=== PATIENT | female | born 1995 | race Caucasian/White ===

== ENCOUNTER 2016-04-21 20:11 | Emergency (ER) | payer OTHER ==
--- NOTE | 2016-04-21 20:57 | ED CLINICAL REPORT ---
Clinical Report - Physicians/Mid Levels [facility] [address] [place] [address] 04/21/2016 20:17 Patient: MANSOOR PRUITT Time Seen: 2049; initial patient contact, initial documentation, patient care assumed. Arrived- By private vehicle. Historian- patient. HISTORY OF PRESENT ILLNESS Chief Complaint: EYE PAIN, REDNESS and IRRITATION. This started today, involves the right eye, is characterized as moderate in severity and has been constant and is still present. The patient did not sustain an injury. Eye discomfort, burning, redness and discharge. No blurred vision, double vision, decreased vision or loss of vision. ( used otc eye wash, no relief). REVIEW OF SYSTEMS All systems otherwise negative, except as recorded above. PAST HISTORY Negative. SOCIAL HISTORY Never smoker. No alcohol use or drug use. FAMILY HISTORY No significant family medical history. ADDITIONAL NOTES The nursing notes have been reviewed with agreement regarding the chief complaint, HPI, ROS, PMH and patient medications and allergies. PHYSICAL EXAM Vital Signs: 04/21/2016 20:23 BP: 119/74. HR: 72. RR: 16. O2 saturation: 99%. Temp: 98.2 F. Pain level now: 8/10. Appearance: Alert. Oriented X3. No acute distress. Eyes: Eyelids appear normal to inspection. Conjunctivae and sclerae do not appear normal to inspection. Corneas appear normal to inspection. Pupils equal, round and reactive to light. Accommodation normal. Funduscopic exam normal. Visual hassan normal. EOMs intact. Periorbital areas appear normal to inspection. Anterior chambers clear. Anterior chambers of normal depth. Rt Eye: Right eye exam normal. Mild conjunctival edema. Copious exudate present. Lt Eye: Left eye exam normal. Neck: Neck supple. Normal inspection. Respiratory: No respiratory distress. Skin: No rash. Extremities: Extremities negative. Neuro: Oriented X 3. Mood/affect normal. No motor deficit. No sensory deficit. PROGRESS AND PROCEDURES Patient counseled in person regarding the patient's stable condition and diagnosis. 20:57. Differential Diagnosis: Other possible considerations: conjunctivitis, fb, abrasion. Above considerations are based on history and physical exam. Differential diagnosis was discussed with patient. Disposition: Discharged home in good and unchanged condition (20:57). Condition: good and stable. CLINICAL IMPRESSION Acute mucopurulent conjunctivitis of the right eye. INSTRUCTIONS Warnings: GENERAL WARNINGS: Return or contact your physician immediately if your condition worsens or changes unexpectedly, if not improving as expected, or if other problems arise. Specifically return if problem worsens. Prescription Medications: Polytrim ophthalmic solution: Instill 1 drop into affected eye every 3 hours while awake (max 6 doses per day) for 1 week. Dispense five (5) mL. No refills. Substitution is permissible. Follow-up: Follow up with your doctor in about two days as needed. Call for an appointment. Summary of care provided to patient. Understanding of the discharge instructions verbalized by patient. (Electronically signed by Luisa Garcia A.R.N.P. 04/21/2016 22:08)
--- NOTE | 2016-04-21 20:57 | ED NURSING NOTES ---
Clinical Report - Nurses [facility] [address] [place] [address] 04/21/2016 20:17 Patient: MANSOOR PRUITT TRIAGE Triage time 20:23. Acuity: LEVEL 4. Chief Complaint: REDNESS and VISION PROBLEM TO RIGHT EYE. "PINK EYE" and DISCOMFORT TO RIGHT EYE. 20:28 04/21/16. SEPSIS SCREEN: Sepsis Screen. Negative (no infection suspected/documented). ANA COMA SCORE: Ana Coma Scale: 15- eyes open spontaneously (4); best verbal response- oriented x 4 (5); best motor response- obeys commands (6). --20:28 Carrillo Garzon R.N. 20:23 04/21/16. BP: 119/74. HR: 72. RR: 16. O2 saturation: 99% on room air. Temp: 98.2 F (oral). Pain level now: 810. --20:28 Carrillo Garzon R.N. Weight: 74.8 kg stated. Height/Length: 64 inches Per Patient. BMI: 28.3. --20:24 Carrillo Garzon R.N. Medications None. --20:24 Carrillo Garzon R.N. Allergies No Known Drug Allergy. --20:25 Carrillo Garzon R.N. History Historian: patient. This started today. 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 PAST MEDICAL HX: Denies current . SOCIAL HX: Never smoker. No alcohol use or drug use. ABUSE ASSESSMENT: No report of abuse. --20:28 Carrillo Garzon R.N. PROBLEMS: no known problems. Interventions ID band on patient. To treatment room. --20:28 Carrillo Garzon R.N. PHYSICAL ASSESSMENT 20:33 04/21/16. Ambulatory to room. GENERAL / NEURO / PSYCH: Alert. Appears in no acute distress. Appears in pain. HEENT: No facial asymmetry noted. Photophobia present. Pupils equal, round and reactive to light. Conjunctival findings present: redness of the right conjunctiva. Right ear within normal limits. Left ear within normal limits. Mouth inspection within normal limits. Pharynx within normal limits. RESPIRATORY: Respirations not labored. CVS: Capillary refill less than 2 seconds. SKIN: Skin is warm and dry. Normal skin turgor. --20:33 Carrillo Garzon R.N. NURSING PROGRESS NOTES 20:33 04/21/16. Reassurance given. Two patient identifiers checked. Call light placed in reach. Bed placed in lowest position. Brakes of bed on. Patient ready for evaluation- chart flagged. --20:34 Carrillo Garzon R.N. DISPOSITION / DISCHARGE 21:18 04/21/16. Departure time: 2114. Condition at departure: unchanged and stable. No learning barriers present. Discharge instructions provided and reviewed with the patient. Reviewed medication(s). Treatments reviewed. Patient and industrial arts public school teacher verbalized understanding. Written instructions provided in Tu[place]. The patient was discharged by the nurse practitioner. She was discharged home and accompanied by industrial arts public school teacher. She left the Emergency Department ambulatory and via private vehicle. Child Development Assistant driving. --21:19 Carrillo Garzon R.N. 21:00 04/21/16. BP: 118/72. HR: 72. RR: 16. O2 saturation: 99% on room air. Temp: 98.2 F (oral). Pain level now: 11/28. --21:19 Carrillo Garzon R.N. Locked/Released at 04/21/2016 21:19 by Carrillo Garzon R.N.
--- NOTE | 2016-04-21 20:57 | ED CLINICAL REPORT ---
Clinical Report - Physicians/Mid Levels [facility] [address] [place] [address] 04/21/2016 20:17 Patient: MANSOOR PRUITT Time Seen: 2049; initial patient contact, initial documentation, patient care assumed. Arrived- By private vehicle. Historian- patient. HISTORY OF PRESENT ILLNESS Chief Complaint: EYE PAIN, REDNESS and IRRITATION. This started today, involves the right eye, is characterized as moderate in severity and has been constant and is still present. The patient did not sustain an injury. Eye discomfort, burning, redness and discharge. No blurred vision, double vision, decreased vision or loss of vision. ( used otc eye wash, no relief). REVIEW OF SYSTEMS All systems otherwise negative, except as recorded above. PAST HISTORY Negative. SOCIAL HISTORY Never smoker. No alcohol use or drug use. FAMILY HISTORY No significant family medical history. ADDITIONAL NOTES The nursing notes have been reviewed with agreement regarding the chief complaint, HPI, ROS, PMH and patient medications and allergies. PHYSICAL EXAM Vital Signs: 04/21/2016 20:23 BP: 119/74. HR: 72. RR: 16. O2 saturation: 99%. Temp: 98.2 F. Pain level now: 8/10. Appearance: Alert. Oriented X3. No acute distress. Eyes: Eyelids appear normal to inspection. Conjunctivae and sclerae do not appear normal to inspection. Corneas appear normal to inspection. Pupils equal, round and reactive to light. Accommodation normal. Funduscopic exam normal. Visual hassan normal. EOMs intact. Periorbital areas appear normal to inspection. Anterior chambers clear. Anterior chambers of normal depth. Rt Eye: Right eye exam normal. Mild conjunctival edema. Copious exudate present. Lt Eye: Left eye exam normal. Neck: Neck supple. Normal inspection. Respiratory: No respiratory distress. Skin: No rash. Extremities: Extremities negative. Neuro: Oriented X 3. Mood/affect normal. No motor deficit. No sensory deficit. PROGRESS AND PROCEDURES Patient counseled in person regarding the patient's stable condition and diagnosis. 20:57. Differential Diagnosis: Other possible considerations: conjunctivitis, fb, abrasion. Above considerations are based on history and physical exam. Differential diagnosis was discussed with patient. Disposition: Discharged home in good and unchanged condition (20:57). Condition: good and stable. CLINICAL IMPRESSION Acute mucopurulent conjunctivitis of the right eye. INSTRUCTIONS Warnings: GENERAL WARNINGS: Return or contact your physician immediately if your condition worsens or changes unexpectedly, if not improving as expected, or if other problems arise. Specifically return if problem worsens. Prescription Medications: Polytrim ophthalmic solution: Instill 1 drop into affected eye every 3 hours while awake (max 6 doses per day) for 1 week. Dispense five (5) mL. No refills. Substitution is permissible. Follow-up: Follow up with your doctor in about two days as needed. Call for an appointment. Summary of care provided to patient. Understanding of the discharge instructions verbalized by patient. (Electronically signed by Luisa Garcia A.R.N.P. 04/21/2016 22:08)
--- NOTE | 2016-04-21 20:57 | ED NURSING NOTES ---
Clinical Report - Nurses [facility] [address] [place] [address] 04/21/2016 20:17 Patient: MANSOOR PRUITT TRIAGE Triage time 20:23. Acuity: LEVEL 4. Chief Complaint: REDNESS and VISION PROBLEM TO RIGHT EYE. "PINK EYE" and DISCOMFORT TO RIGHT EYE. 20:28 04/21/16. SEPSIS SCREEN: Sepsis Screen. Negative (no infection suspected/documented). ANA COMA SCORE: Ana Coma Scale: 15- eyes open spontaneously (4); best verbal response- oriented x 4 (5); best motor response- obeys commands (6). --20:28 Carrillo Garzon R.N. 20:23 04/21/16. BP: 119/74. HR: 72. RR: 16. O2 saturation: 99% on room air. Temp: 98.2 F (oral). Pain level now: 810. --20:28 Carrillo Garzon R.N. Weight: 74.8 kg stated. Height/Length: 64 inches Per Patient. BMI: 28.3. --20:24 Carrillo Garzon R.N. Medications None. --20:24 Carrillo Garzon R.N. Allergies No Known Drug Allergy. --20:25 Carrillo Garzon R.N. History Historian: patient. This started today. 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 PAST MEDICAL HX: Denies current . SOCIAL HX: Never smoker. No alcohol use or drug use. ABUSE ASSESSMENT: No report of abuse. --20:28 Carrillo Garzon R.N. PROBLEMS: no known problems. Interventions ID band on patient. To treatment room. --20:28 Carrillo Garzon R.N. PHYSICAL ASSESSMENT 20:33 04/21/16. Ambulatory to room. GENERAL / NEURO / PSYCH: Alert. Appears in no acute distress. Appears in pain. HEENT: No facial asymmetry noted. Photophobia present. Pupils equal, round and reactive to light. Conjunctival findings present: redness of the right conjunctiva. Right ear within normal limits. Left ear within normal limits. Mouth inspection within normal limits. Pharynx within normal limits. RESPIRATORY: Respirations not labored. CVS: Capillary refill less than 2 seconds. SKIN: Skin is warm and dry. Normal skin turgor. --20:33 Carrillo Garzon R.N. NURSING PROGRESS NOTES 20:33 04/21/16. Reassurance given. Two patient identifiers checked. Call light placed in reach. Bed placed in lowest position. Brakes of bed on. Patient ready for evaluation- chart flagged. --20:34 Carrillo Garzon R.N. DISPOSITION / DISCHARGE 21:18 04/21/16. Departure time: 2114. Condition at departure: unchanged and stable. No learning barriers present. Discharge instructions provided and reviewed with the patient. Reviewed medication(s). Treatments reviewed. Patient and drafter tool design verbalized understanding. Written instructions provided in Nigerien. The patient was discharged by the nurse practitioner. She was discharged home and accompanied by drafter tool design. She left the Emergency Department ambulatory and via private vehicle. Enamel Sprayer driving. --21:19 Carrillo Garzon R.N. 21:00 04/21/16. BP: 118/72. HR: 72. RR: 16. O2 saturation: 99% on room air. Temp: 98.2 F (oral). Pain level now: 11/28. --21:19 Carrillo Garzon R.N. Locked/Released at 04/21/2016 21:19 by Carrillo Garzon R.N.
--- NOTE | 2016-04-21 22:08 | ED DISCHARGE INSTRUCTIONS ---
Patient: MANSOOR PRUITT General Instructions [facility] VisitID: [id number] [place] [address] 20y, F Registration Date/Time: 04/21/2016 INSTRUCTIONS Warnings: GENERAL WARNINGS: Return or contact your physician immediately if your condition worsens or changes unexpectedly, if not improving as expected, or if other problems arise. Specifically return if problem worsens. Prescription Medications: Polytrim ophthalmic solution: Instill 1 drop into affected eye every 3 hours while awake (max 6 doses per day) for 1 week. Dispense five (5) mL. No refills. Substitution is permissible. Follow-up: Follow up with your doctor in about two days as needed. Call for an appointment. Summary of care provided to patient. Understanding of the discharge instructions verbalized by patient. ADDITIONAL INFORMATION Conjunctivitis, Bacterial You have a bacterial infection in the membranes covering the eye. The most common symptoms include a thick discharge from the eye, swollen eyelids, redness, eyelids sticking together upon awakening, and a gritty or scratchy feeling in the eye. The infection takes about 7-10 days to resolve with treatment. Home Care: Use prescribed eyedrops or ointment as directed to treat the infection. Apply a warm pack (towel soaked in warm water) to the affected eye 3-4 times a day. Do this just before applying medicine to the eye. Use a warm, wet cloth to wipe away crusting of the eyelids in the morning. This is caused by mucus drainage during the night. You may also use saline irrigating solution or artificial tears to rinse away mucus inside the eye. Do not put a patch over the eye. Wash your hands before and after touching the infected eye. This is to prevent spreading the infection to the other eye, and to other people. Do not share your towels or washcloths with others. You may use acetaminophen (Tylenol) or ibuprofen (Motrin, Advil) to control pain, unless another medicine was prescribed. [NOTE: If you have chronic liver or kidney disease or ever had a stomach ulcer or GI bleeding, talk with your doctor before using these medicines.] Do not wear contact lenses until your eyes have healed and all symptoms are gone. Follow Up with your doctor or this facility as directed, or if there has not been improvement within 5 days. Get Prompt Medical Attention if any of the following occur: Worsening vision Increasing pain in the eye Increasing swelling or redness of the eyelid Redness spreading around the eye Conjunctivitis, Non-Specific The membrane that covers your eye is inflamed. Any itching, burning or irritation should go away within the next 24 hours. Conjunctivitis may be related to a particle that was in your eye. If so, it was washed out with your tears or irrigation treatment. Being exposed to liquid chemicals or fumes may also cause this reaction. Your condition does not appear to be due to an eye infection. Home Care: Apply a cold pack (ice in a plastic bag, wrapped in a towel) over the eye for 20 minutes at a time. This will reduce pain. Eye drops may be prescribed to reduce irritation or redness. Otherwise, Visine or similar [id number] decongestant eye drops may be used. You may use acetaminophen (Tylenol) or ibuprofen (Motrin, Advil) to control pain, unless another medicine was prescribed. [ NOTE: If you have chronic liver or kidney disease or ever had a stomach ulcer or GI bleeding, talk with your doctor before using these medicines.] Follow Up with your doctor or this facility as directed, or if your symptoms have not improved after 24 hours. Get Prompt Medical Attention if any of the following occur: Increased eyelid swelling Increase in eye pain Increased redness or drainage from the eye Failure of normal vision to return within 24-48 hours. Trimethoprim Sulfate, Polymyxin B Sulfate Eye drops, solution What is this medicine? POLYMYXIN B and TRIMETHOPRIM (la i MIX in B and trye METH oh prim) eye drops treat certain eye infections caused by bacteria. How should I use this medicine? This medicine is used in the eye. Follow the directions on the prescription label. Wash your hands before and after use. Tilt your head back slightly. Pull your lower eyelid down gently to form a pouch. Do not touch the tip of the dropper to your eye, fingertips, or other surface. Squeeze the prescribed number of drops into the pouch. Close the eye gently to spread the drops. Use your medicine at regular intervals. Do not take your medicine more often than directed. Use all of your medicine as directed even if you think your are better. Do not skip doses or stop your medicine early. Talk to your post splitter regarding the use of this medicine in children. While this drug may be prescribed for children and infants for selected conditions, precautions do apply. What side effects may I notice from receiving this medicine? Side effects that you should report to your doctor or health care transition manager as soon as possible: burning, stinging, or swelling change in vision or blurred vision that will not go away eye pain itching and redness rash Side effects that usually do not require medical attention (report to your doctor or health care transition manager if they continue or are bothersome): temporary blurred vision after applying temporary watering or stinging What may interact with this medicine? Interactions are not expected. Do not use any other eye products without advice of your doctor or health care transition manager. What if I miss a dose? If you miss a dose, use it as soon as you can. If it is almost time for your next dose, use only that dose. Do not use double or extra doses. Where should I keep my medicine? Keep out of the reach of children. Store at room temperature 15 to 25 degrees C (59 to 77 degrees F). Protect from light. To prevent the spread of infection, it is best to throw away any unused eye drops after you finish the course of treatment. Throw away any unused medicine after the expiration date. What should I tell my health care provider before I take this medicine? They need to know if you have any of these conditions: wear contact lenses an unusual or allergic reaction to polymyxin B, trimethoprim, other medicines, foods, dyes, or preservatives or trying to get breast-feeding What should I watch for while using this medicine? Check with your doctor or health care transition manager if your condition does not get better after 5 days, or if it gets worse. If you wear contact lenses, ask when you can use your lenses again. A burning or stinging reaction that does not go away may mean you are allergic to this product. Stop use and call your doctor or health care transition manager. To prevent the spread of infection, do not share eye products or other personal items with anyone else. You have been given the following additional information: Conjunctivitis, Bacterial Conjunctivitis, Non-Specific Trimethoprim Sulfate, Polymyxin B Sulfate Eye drops, solution (Electronically signed by Luisa Garcia A.R.N.P. 04/21/2016 22:08)
--- NOTE | 2016-04-21 22:08 | ED MED RECONCILIATION SUMMARY ---
Patient: MANSOOR PRUITT Medication Reconciliation Report [facility] VisitID: [id number] [address] [place] [address] 20y, F Registration Date/Time: 04/21/2016 Weight: 74.8 kg Height/Length: 64 in. BMI: 28.3 ALLERGIES: No Known Drug Allergy The patient's Home Medications are listed below: NONE. The source(s) of the original Home Medication information: Not obtained. The following Medications were given to the patient in the Emergency Department: None. The following Medications were prescribed to the patient: Polytrim ophthalmic solution: Instill 1 drop into affected eye every 3 hours while awake (max 6 doses per day) for 1 week. Dispense five (5) mL. No refills. Substitution is permissible. -- Luisa Garcia A.R.N.P.
--- NOTE | 2016-04-21 22:08 | ED DISCHARGE INSTRUCTIONS ---
Patient: MANSOOR PRUITT General Instructions [facility] VisitID: [id number] [place] [address] 20y, F Registration Date/Time: 04/21/2016 INSTRUCTIONS Warnings: GENERAL WARNINGS: Return or contact your physician immediately if your condition worsens or changes unexpectedly, if not improving as expected, or if other problems arise. Specifically return if problem worsens. Prescription Medications: Polytrim ophthalmic solution: Instill 1 drop into affected eye every 3 hours while awake (max 6 doses per day) for 1 week. Dispense five (5) mL. No refills. Substitution is permissible. Follow-up: Follow up with your doctor in about two days as needed. Call for an appointment. Summary of care provided to patient. Understanding of the discharge instructions verbalized by patient. ADDITIONAL INFORMATION Conjunctivitis, Bacterial You have a bacterial infection in the membranes covering the eye. The most common symptoms include a thick discharge from the eye, swollen eyelids, redness, eyelids sticking together upon awakening, and a gritty or scratchy feeling in the eye. The infection takes about 7-10 days to resolve with treatment. Home Care: Use prescribed eyedrops or ointment as directed to treat the infection. Apply a warm pack (towel soaked in warm water) to the affected eye 3-4 times a day. Do this just before applying medicine to the eye. Use a warm, wet cloth to wipe away crusting of the eyelids in the morning. This is caused by mucus drainage during the night. You may also use saline irrigating solution or artificial tears to rinse away mucus inside the eye. Do not put a patch over the eye. Wash your hands before and after touching the infected eye. This is to prevent spreading the infection to the other eye, and to other people. Do not share your towels or washcloths with others. You may use acetaminophen (Tylenol) or ibuprofen (Motrin, Advil) to control pain, unless another medicine was prescribed. [NOTE: If you have chronic liver or kidney disease or ever had a stomach ulcer or GI bleeding, talk with your doctor before using these medicines.] Do not wear contact lenses until your eyes have healed and all symptoms are gone. Follow Up with your doctor or this facility as directed, or if there has not been improvement within 5 days. Get Prompt Medical Attention if any of the following occur: Worsening vision Increasing pain in the eye Increasing swelling or redness of the eyelid Redness spreading around the eye Conjunctivitis, Non-Specific The membrane that covers your eye is inflamed. Any itching, burning or irritation should go away within the next 24 hours. Conjunctivitis may be related to a particle that was in your eye. If so, it was washed out with your tears or irrigation treatment. Being exposed to liquid chemicals or fumes may also cause this reaction. Your condition does not appear to be due to an eye infection. Home Care: Apply a cold pack (ice in a plastic bag, wrapped in a towel) over the eye for 20 minutes at a time. This will reduce pain. Eye drops may be prescribed to reduce irritation or redness. Otherwise, Visine or similar [id number] decongestant eye drops may be used. You may use acetaminophen (Tylenol) or ibuprofen (Motrin, Advil) to control pain, unless another medicine was prescribed. [ NOTE: If you have chronic liver or kidney disease or ever had a stomach ulcer or GI bleeding, talk with your doctor before using these medicines.] Follow Up with your doctor or this facility as directed, or if your symptoms have not improved after 24 hours. Get Prompt Medical Attention if any of the following occur: Increased eyelid swelling Increase in eye pain Increased redness or drainage from the eye Failure of normal vision to return within 24-48 hours. Trimethoprim Sulfate, Polymyxin B Sulfate Eye drops, solution What is this medicine? POLYMYXIN B and TRIMETHOPRIM (la i MIX in B and trye METH oh prim) eye drops treat certain eye infections caused by bacteria. How should I use this medicine? This medicine is used in the eye. Follow the directions on the prescription label. Wash your hands before and after use. Tilt your head back slightly. Pull your lower eyelid down gently to form a pouch. Do not touch the tip of the dropper to your eye, fingertips, or other surface. Squeeze the prescribed number of drops into the pouch. Close the eye gently to spread the drops. Use your medicine at regular intervals. Do not take your medicine more often than directed. Use all of your medicine as directed even if you think your are better. Do not skip doses or stop your medicine early. Talk to your recoil spring winder regarding the use of this medicine in children. While this drug may be prescribed for children and infants for selected conditions, precautions do apply. What side effects may I notice from receiving this medicine? Side effects that you should report to your doctor or health nurse healthcare manager as soon as possible: burning, stinging, or swelling change in vision or blurred vision that will not go away eye pain itching and redness rash Side effects that usually do not require medical attention (report to your doctor or health nurse healthcare manager if they continue or are bothersome): temporary blurred vision after applying temporary watering or stinging What may interact with this medicine? Interactions are not expected. Do not use any other eye products without advice of your doctor or health nurse healthcare manager. What if I miss a dose? If you miss a dose, use it as soon as you can. If it is almost time for your next dose, use only that dose. Do not use double or extra doses. Where should I keep my medicine? Keep out of the reach of children. Store at room temperature 15 to 25 degrees C (59 to 77 degrees F). Protect from light. To prevent the spread of infection, it is best to throw away any unused eye drops after you finish the course of treatment. Throw away any unused medicine after the expiration date. What should I tell my health care provider before I take this medicine? They need to know if you have any of these conditions: wear contact lenses an unusual or allergic reaction to polymyxin B, trimethoprim, other medicines, foods, dyes, or preservatives or trying to get breast-feeding What should I watch for while using this medicine? Check with your doctor or health nurse healthcare manager if your condition does not get better after 5 days, or if it gets worse. If you wear contact lenses, ask when you can use your lenses again. A burning or stinging reaction that does not go away may mean you are allergic to this product. Stop use and call your doctor or health nurse healthcare manager. To prevent the spread of infection, do not share eye products or other personal items with anyone else. You have been given the following additional information: Conjunctivitis, Bacterial Conjunctivitis, Non-Specific Trimethoprim Sulfate, Polymyxin B Sulfate Eye drops, solution (Electronically signed by Luisa Garcia A.R.N.P. 04/21/2016 22:08)
--- NOTE | 2016-04-21 22:08 | ED MAR SUMMARY ---
..... Medication Administration Record [facility] [address] [place], [place] [id number] Patient: MANSOOR PRUITT Visit ID: [id number] 20y, F Weight: 74.8 kg Height/Length: 64 in BMI: 28.3 ALLERGIES: No Known Drug Allergy
--- NOTE | 2016-04-21 22:08 | ED MED RECONCILIATION SUMMARY ---
Patient: MANSOOR PRUITT Medication Reconciliation Report [facility] VisitID: [id number] [address] [place] [address] 20y, F Registration Date/Time: 04/21/2016 Weight: 74.8 kg Height/Length: 64 in. BMI: 28.3 ALLERGIES: No Known Drug Allergy The patient's Home Medications are listed below: NONE. The source(s) of the original Home Medication information: Not obtained. The following Medications were given to the patient in the Emergency Department: None. The following Medications were prescribed to the patient: Polytrim ophthalmic solution: Instill 1 drop into affected eye every 3 hours while awake (max 6 doses per day) for 1 week. Dispense five (5) mL. No refills. Substitution is permissible. -- Luisa Garcia A.R.N.P.
--- NOTE | 2016-04-21 22:08 | ED MAR SUMMARY ---
..... Medication Administration Record [facility] [address] [place], [place] [id number] Patient: MANSOOR PRUITT Visit ID: [id number] 20y, F Weight: 74.8 kg Height/Length: 64 in BMI: 28.3 ALLERGIES: No Known Drug Allergy
== END 2016-04-21 21:15 | disposition home or self-care (01) ==
LOC: ED SRH 20:11
DX: H10.021 Other mucopurulent conjunctivitis, right eye (principal)